=== PATIENT | male | born 1990 | race Caucasian/White ===

== ENCOUNTER 2017-10-30 16:34 | Emergency (ER) | payer OTHER ==
[~2017-10-30] VITALS: Ht 167.6 cm; Wt 59.0 kg
[2017-10-30 16:35] VITALS: Ht 167.6 cm; Wt 59.0 kg
[2017-10-30 18:00] LABS: BASOPHIL % 0.4 % (0-2); PLATELET COUNT 165 x10^3mcL (130-400); RED CELL DISTRIBUTION WIDTH 12.8 % (11.5-14.5)
[2017-10-30 19:00] VITALS: BP 130/70
[2017-10-30 19:12] LABS: CALCIUM 8.6 mg/dL (8.5-10.1); CARBON DIOXIDE 22.8 mmol/L (21-32); CHLORIDE SERUM 101 mmol/L (98-107); CREATININE SERUM 1.1 mg/dL (0.7-1.3); GFR1 > 60 mL/min; GLUCOSE SERUM 111 mg/dL (74-106); POTASSIUM SERUM 3.3 mmol/L (3.5-5.1); SODIUM SERUM 138 mmol/L (136-145)
[2017-10-30 19:17] LABS: ALBUMIN 4.1 g/dL (3.4-5.0); ALKALINE PHOSPHATASE 64 U/L (46-116); ALT/SGPT 56 U/L (16-63); AST/SGOT 61 U/L (15-37)
== END 2017-10-30 19:00 | disposition short-term general hospital (02) ==
LOC: ED 16:34
PROVIDERS: Emergency Medicine
DX: S31.614A Laceration without foreign body of abdominal wall, left lower quadrant with penetration into peritoneal cavity, initial encounter (principal); W22.8XXA Striking against or struck by other objects, initial encounter; S36.113A Laceration of liver, unspecified degree, initial encounter; Y93.89 Activity, other specified; Y99.8 Other external cause status; Y92.89 Other specified places as the place of occurrence of the external cause
CPT/HCPCS: J0694; J2270; J2405; J3490; J7030; Q0092; Q9967

== ENCOUNTER 2019-02-13 20:15 | Emergency (ER) | payer OTHER ==
[~2019-02-13] VITALS: Ht 157.5 cm; Wt 53.5 kg
[2019-02-13 20:19] VITALS: BP 136/87; Ht 157.5 cm; Wt 53.5 kg
== END 2019-02-13 21:04 | disposition other institution (70) ==
LOC: ED 20:15
DX: Z02.89 Encounter for other administrative examinations (principal)